=== PATIENT | female | born 1985 | race Caucasian/White ===

== ENCOUNTER 2018-03-06 13:42 | Emergency (ER) | payer SELFPAY ==
[2018-03-06 13:43] VITALS: BP 137/75; PULSE 78; RESP 16; TEMP 36.8; O2SAT 99; BMI 36.0
[2018-03-06] MEDS: Ketorolac 60 MG/2 ML Vial IM (14:15)
[2018-03-06] MEDS: Orphenadrine 60 MG/2 ML Ampul IM (14:15)
[2018-03-06] MEDS: HYDROmorphone 1 MG/ML Syringe IM (14:15)
--- NOTE | 2018-03-06 14:30 | RAD_ITS ---
STUDY: X-RAY - LUMBAR SPINE REASON FOR EXAM: Female, 33 years old. Low back pain following a fall. TECHNIQUE: 3 view(s) of the lumbar spine were obtained. COMPARISON: None FINDINGS: There is straightening of the normal lumbar lordosis. There is no substantial scoliosis. There is a normal alignment of the vertebrae. Normal vertebral bodies and endplates. Normal disc space heights. The soft tissue structures are unremarkable. RAD/Lumbar Spine 2 or 3 Views IMPRESSION: Straightening of the normal lumbar lordosis. Electronically Signed: Brown Gunter MD at 15:02 EST Tel [phone], Service support ,
--- NOTE | 2018-03-06 15:43 | ED.VISSUMM ---
- ER Visit Summary Date of Service: 03/06/18 Chief Complaint: [Back injury] History of Present Illness: The patient is a 33 F [presents to the emergency department complaining of back pain since sustaining an injury this morning. Patient states that she was watering the chicken when she slipped and twisted at which time she felt a pop in her low back. Afterward she had a hard time straightening up and therefore she lowered herself to the ground. Complains of pain and discomfort into both hips and buttocks. She had some mild discomfort down the back of her right leg. She denies any change in bowel or bladder function. She denies weakness in the extremities. She does not have history of back pain. She denies recent illness. She denies urinary symptoms.] Physical Examination: [HEENT-PERRLA, EOMI. Cranial nerves II through XII grossly intact. TMs clear. Mucous membranes moist. No adenopathy. Cardiovascular-regular rate and rhythm without murmur or ectopy Lungs-clear to auscultation, chest wall stable without crepitus or subcu emphysema Abdomen-normoactive bowel sounds, soft, nontender, no rebound or rigidity, no peritoneal signs. Back exam-patient does have some diffuse tenderness over lumbar spine as well as the lumbar paraspinal musculature bilaterally. Patient has positive straight leg raises bilaterally at 45 degrees. Deep tendon reflexes are plus 2 out of 4 bilaterally at the patella and Achilles. Patient has normal L5 extension bilaterally. Patient has normal sensation to light touch. Extremities-intact ?4, normal range of motion, normal pulses, atraumatic] Test Results: [X-rays of lumbar spine obtained showed a ending of the normal lordosis otherwise no fractures.] Emergency Department Course and Treatment: [She was medicated with Dilaudid, Toradol, and Norflex. Patient did have good pain relief with this. Patient was able to stand and ambulate after treatment.] Treatment Plan: [Patient will be given a prescription for Flexeril, Naprosyn, and [place] for severe pain. Patient advised to follow-up with her primary care physician within next 3-5 days. Patient understands if symptoms worsen or she continues 6. Significant pain may need further imaging such as possibly MRI. At this time patient has no signs or symptoms of cauda equina.] Disposition: [Discharged home in stable condition] Impression: [Lumbar strain Lumbar radiculopathy] This note was generated with [employer] dictation software. It may contain incorrect words, spelling, and punctuation that were not noted in review of the chart prior to signing ED Disposition - Plan for ED Patient: Chief Complaint: Back Referrals: Veronica Snow, MANAGER [facility] [Primary Care Provider] -
--- NOTE | 2018-03-06 15:46 | ED.DEP ---
ED Disposition - Plan for ED Patient: Chief Complaint: Back Instructions: ED Sprain Strain Lumbar, ED Sciatica Prescriptions: Hydrocodone Bitart/Apap 5-325 [[place] 5MG-325MG] 1 tab PO Q4H PRN PRN 2 Days #20 tab PRN Reason: Pain Naproxen [Naprosyn] 500 mg PO BID PRN #20 tab Cyclobenzaprine [Flexeril] 10 mg PO TID PRN #20 tab PRN Reason: Muscle Spasm Referrals: Veronica nSow NP-C [Primary Care Provider] - 3-5 Days
[2018-03-06 15:59] VITALS: BP 125/79; PULSE 70; RESP 16; O2SAT 98
--- OUTSIDE RECORDS SUMMARY | 2018-05-02 05:11 | XMS RPT_ITS ---
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 Start End MELOXICAM 15 MG TABLET 30 t* 0 02/27/2018 Route: ORAL Sig: Take 1 tablet by mouth once daily. Take with food. Disposition: Return in about 2 weeks (around 03/13/2018). Follow-up and Disposition History Recorded Encounter Status:Closed by TAMEKA JACOBS CNP on 02/27/18 ED NOTE Observed: 09/10/2017 Status: COMPLETED Source: [place] 2:53 PM [facility] REPOSITORY HNO ID: [id number] Author: Veronica (Rn) VICTORINO Blevins Service: Emergency Medicine Author Type: Registered Nurse Type: ED Notes Filed: 09/11/2017 1:37 PM Note Text: Patient Call Back Information ? How are you doing ? better ? Did we appropriately manage your pain? Yes ? Did you understand your discharge instructions? Yes ? Did you get your prescriptions filled? No ? Were you able to make a follow-up appointment with your physician? Yes ? Were you comfortable during your stay here? Yes ? Did a member of the ER nursing team round on you during your visit? Yes ? You will receive a patient satisfaction survey in the mail in the nest 2 weeks, please take the time to fill out the survey as your input from your ER visit is very important to us. Yes ? Can we do anything else to help you? No ED NOTE Observed: 09/10/2017 Status: COMPLETED Source: [place] 2:43 PM [facility] REPOSITORY HNO ID: [id number] Author: Lynn (Rn) Sammi RN Service: Emergency Medicine Author Type: Registered Nurse Type: ED Notes Filed: 09/10/2017 2:44 PM Note Text: MORPHINE ORDERED FOR SECOND DOSE NOT GIVEN. DOCTOR ERROR. Dr. Denny aware.. CT ABDOMEN AND PELVIS Observed: 09/10/2017 Status: F Source: [facility] W/O CONTRAST 2:09 PM HEALTH SYSTEM REPOSITORY Performed at [facility] APPROVED BY: Kolby Lund MD EXAM TITLE:CT ABDOMEN AND PELVIS W/O CONTRAST DATE:09/10/2017 13:45 COMPARISON: 07/11/2011 CLINICAL INDICATION/HISTORY: Abdominal pain, fever, elevated white blood cell count. TECHNIQUE: CT examination the abdomen and pelvis performed without oral or IV contrast. Sagittal and coronal reconstruction images were generated. CT Radiation dose: Integrated Dose-length product (DLP) for this visit = 1120 mGy*cm. CT Dose Reduction Employed: Automated exposure control (AEC) was used. FINDINGS: ABDOMINAL FINDINGS: The visualized lung parenchyma is clear. Limited evaluation of the unenhanced visceral organs. There is no focal abnormality involving the liver, gallbladder or iliac system. The spleen and pancreas appear normal as do the adrenal glands and kidneys. No urinary tract calculi are present. Normal appendix. No bowel dilatation or wall thickening. No obvious vascular abnormality. There is no lymphadenopathy, free fluid or omental nodule. No acute bony abnormality. PELVIC FINDINGS: The uterus is midline in position. Small ovarian follicles or cysts. No adnexal mass. There is no free fluid or lymphadenopathy. No acute bony abnormality. IMPRESSION: No acute abnormality identified. Follow-up as indicated. ED PROV NOTE Observed: 09/10/2017 Status: COMPLETED Source: [place] 1:51 PM [facility] [place] REPOSITORY HNO ID: [id number] Author: Jazmine Denny MD Service: Emergency Medicine Author Type: Physician Type: ED Provider Notes Filed: 09/10/2017 2:38 PM Note Text: ED Provider Note Patient Name: Sara Gomez SERVICE DATE: 09/10/17 History Patient presents with: Vomiting Diarrhea patient presents with 14 hours of nausea vomiting diarrhea and abdominal pain. She states that her abdominal pain is diffuse but slightly more in bilateral lower quadrants. She states she had a temperature of 100.5. She told me she had some streaks of blood in her vomitus and that she has had 30-40 separate episodes of diarrhea since midnight. She denies any blood in her stool. She states she ate a hot pocket last night and was ill within 2 hours. No one else ate the same food. She has not had rigors PAST MEDICAL HISTORY Diagnosis Date - Migraine PAST SURGICAL HISTORY Procedure Laterality Date - NOSE SURGERY HX No family history on file. Social History Social History Main Topics - Smoking status: Former Smoker - Smokeless tobacco: Never Used - Alcohol use No - Drug use: No - Sexual activity: Yes Partners: Male control/ protection: Implant ALLERGIES No Known Allergies Review of Systems Constitutional: Positive for activity change, appetite change, fatigue and fever. Negative for chills, diaphoresis and unexpected weight change. HENT: Negative. Eyes: Negative. Respiratory: Negative. Cardiovascular: Negative. Gastrointestinal: Positive for abdominal pain, diarrhea and nausea. Negative for abdominal distention, anal bleeding, blood in stool, constipation and rectal pain. Endocrine: Negative. Genitourinary: Negative. Musculoskeletal: Negative. Neurological: Negative. Hematological: Negative. All other systems reviewed and are negative. Physical Exam BP 111/62 Pulse 97 Temp (Src) 98.6 (Temporal Artery) Resp 16 Ht 5' 2 (1.58m) Wt 195 lb (88.5kg) SpO2 100% LMP 09/10/2016 BMI 35.66 kg/(m2). Physical Exam Constitutional: She is oriented to person, place, and time. She appears well-developed and well-nourished. HENT: Head: Normocephalic and atraumatic. Mouth/Throat: Oropharynx is clear and moist. no significant dry mucous membranes were noted. Eyes: Conjunctivae and EOM are normal. Pupils are equal, round, and reactive to light. No scleral icterus. Neck: Normal range of motion. Neck supple. Cardiovascular: Normal rate, regular rhythm and normal heart sounds. Pulmonary/Chest: Effort normal and breath sounds normal. Abdominal: Soft. Bowel sounds are normal. She exhibits no distension and no mass. There is tenderness. There is no rebound and no guarding. No hernia. Musculoskeletal: Normal range of motion. Neurological: She is alert and oriented to person, place, and time. Skin: Skin is warm and dry. Capillary refill takes less than 2 seconds. Psychiatric: She has a normal mood and affect. Nursing note and vitals reviewed. Diagnostic Testing ED Labs Ordered and Reviewed COMPREHENSIVE METABOLIC PANEL (AK,AV,EU,FV,HL,ALEJANDRO,MM,SP) - Abnormal; Notable for the following: Result Value Ref Range Glucose 125 (*) 70 - 99 mg/dL Protein, Total 9.0 (*) 6.4 - 8.2 g/dL All other components within normal limits CBC + AUTO DIFF (AK,AV,EU,FV,HL,ALEJANDRO,MM,SP) - Abnormal; Notable for the following: WBC 13.4 (*) 4.8 - 10.8 thou/cmm Abs. Neut(Anc) 12.46 (*) 3.00 - 5.67 thou/cmm Abs. Lymph 0.54 (*) 1.50 - 3.65 thou/cmm All other components within normal limits URINALYSIS WITH MICROSCOPIC (EU,FV,HL,ALEJANDRO,MM,SP) - Abnormal; Notable for the following: Hemoglobin, Urine 1+ (*) Negative All other components within normal limits HCG QUALITATIVE URINE (AK,AV,EU,FV,HL,ALEJANDRO,MM,SP) LIPASE BLOOD (AK,AV,EU,FV,HL,ALEJANDRO,MM,SP) MDRD GFR CBC + AUTO DIFF (EU,FV,HL,ALEJANDRO,MM,SP) STOOL CULTURE/EIA (AK) Procedures Medical Decision Making MDM patient presented with a chief complaint of concern for food poisoning with nausea and vomitingand diarrhea after eating a hot pocket last evening. Patient was initially treated with IV fluids and Zofran. On reevaluation her pain had localized to the right and left lower quadrant. She has never had any abdominal surgeries. Urine showed that she had a high specific gravity but no urinary tract infection and her test was negative. Mild leukocytosis at 13.4 and electrolytes were unremarkable. With mild leukocytosis and persistent abdominal pain a CT flank was ordered and she was given 4 of morphine IV. Initially I had ordered an nasogastric tube as the patient had told me she had vomited several streaks of blood however the patient then clarified with the nurse that it was the size of a small eraser and she was not sure it was blood in the NG tube order was then discontinued. patient's had a CT scan noncontrast which was negative for any sign of inflammation specifically the appendix was mentioned and is normal. The patient has had no further diarrhea or vomiting since she's been here. She will be discharged with Phenergan bland diet and close follow-up with her primary care. ED Course / Clinical Impression Clinical Impressions as of Sep 11 1431 Nausea vomiting and diarrhea Plan The patient was DISCHARGED: Counseled patient and spouse regarding lab results AND radiology results AND suspected diagnosis AND need for follow-up. Discharged home with verbal and written instructions. They were instructed to return as needed for persistent or worsening symptoms or any new concerns. Condition at time of disposition: stable SIGNATURE: MD Jazmine Cardoza MD 09/10/17 1438 ED NOTE Observed: 09/10/2017 Status: COMPLETED Source: [place] 1:00 PM [facility] REPOSITORY [facility] ID: [id number] Author: Lynn Boyer) VICTORINO Chapa Service: Emergency Medicine Author Type: Registered Nurse Type: ED Notes Filed: 09/10/2017 1:14 PM Note Text: Nasogastric tube placement canceled. Patient clarified and reports she had some specs of blood about the size of an eraser top. was notified and canceled NG tube order ED NOTE Observed: 09/10/2017 Status: COMPLETED Source: [place] 12:28 PM [facility] REPOSITORY HNO ID: [id number] Author: Lynn SosaRn) VICTORINO Chapa Service: Emergency Medicine Author Type: Registered Nurse Type: ED Notes Filed: 09/10/2017 12:28 PM Note Text: Patient resting in bed with spouse at bedside. Patient calm and cooperative. URINALYSIS ROUTINE Collected: 09/10/2017 Status: F Source: [facility] 11:50 AM HEALTH SYSTEM REPOSITORY TYPE CODE TESTS RESULT OUT OF RANGE REFERENCE UNITS LAB LCOLR(LOIN C) Urine Color DARK YELLOW LAB LAPPU(LOIN C) Urine Appearance CLEAR LAB LGLUR(LOIN Negative C) Glucose Urine NEGATIVE LAB LKETO(LOIN Negative C) Ketone Urine NEGATIVE LAB LHGBU(LOIN Negative C) Abnormal Hemoglobin,Urin 1+ e LAB LPRTU(LOIN Negative C) Protein Urine NEGATIVE LAB LNITR(LOIN Negative C) Nitrites Urine NEGATIVE LAB LBILU(LOIN Negative C) Bilirubin Urine NEGATIVE LAB LSPG(LOINC 1.005-1.030 ) Specific 1.025 [place], Ur LAB LPHUR(LOIN 5.0-8.0 C) pH,Urine 6.0 LAB LUROB(LOIN 0.0-1.0 EU/dL C) Urobilinogen,Ur 0.2 LAB LLEUK(LOIN Negative C) Leukocytes NEGATIVE Esterase LAB LWBCU(LOIN 0-5 /hpf C) WBC, Urine NONE LAB LRBCU(LOIN 0-3 /hpf C) RBC,Urine 0-3 LAB LEPIT(LOIN 0-5 /hpf C) Ep Cells Urine 0-2 Performed By: #### LURIN #### [place] [address] URINE HCG, QUAL. Collected: 09/10/2017 Status: F Source: [facility] 11:50 AM [facility] SYSTEM REPOSITORY TYPE CODE TESTS RESULT OUT OF REFERENCE UNITS RANGE LAB LUHCG(LOINC Negative ) HCG, Negative Qual. Urine Performed By: #### LHCG2 #### [place] [address] ED NOTE Observed: 09/10/2017 Status: COMPLETED Source: [place] 11:46 AM [facility] REPOSITORY HNO ID: [id number] Author: Rita (Rn) Rafy RN Service: Emergency Medicine Author Type: Registered Nurse Type: ED Notes Filed: 09/10/2017 11:46 AM Note Text: Labs were drawn and sent. HEMOGRAM/MANUAL DIFF Collected: 09/10/2017 Status: F Source: [place] 11:43 AM [facility] REPOSITORY TYPE CODE TESTS RESULT OUT OF REFERENCE UNITS RANGE LAB LWBC(LOINC 4.8-10.8 thou/cmm ) WBC High 13.4 LAB LRBC(LOINC 4.20-5.40 mil/cmm ) RBC 4.85 LAB LHGB(LOINC 12.0-16.0 g/dL ) Hgb 15.0 LAB LHCT(LOINC 37.0-47.0 % ) Hct 44.0 LAB LMCV(LOINC 81.0-99.0 fl ) MCV 90.7 LAB LMCH(LOINC 27.0-31.0 pg ) MCH 30.9 LAB LMCHC(LOIN 32.0-36.0 % C) MCHC 34.1 LAB LRDW(LOINC 11.5-15.9 % ) RDW 12.3 LAB LPLT(LOINC 150-400 thou/cmm ) Platelet 253 LAB LMPV(LOINC 7.1-10.5 fl ) MPV 10.0 LAB LDTYP(LOIN C) Diff Type Manual Diff LAB LSEGT(LOIN % C) Seg Neutrophil 93.0 LAB LLYMP(LOIN % C) Lymphocyte 4.0 LAB LMNO(LOINC % ) Monocyte 3.0 LAB JUDY(LOINC % ) Eosinophil 0.0 LAB LBASO(LOIN % C) Basophil 0.0 LAB LSEGN(LOIN 3.00-5.67 thou/cmm C) Abs. High Neut (ANC) 12.46 LAB LLYMN(LOIN 1.50-3.65 thou/cmm C) Low Abs. Lymph 0.54 LAB LMONN(LOIN 0.20-1.00 thou/cmm C) Abs. [place] 0.40 LAB LEOSN(LOIN 0.00-0.41 thou/cmm C) Abs. Eosin 0.00 LAB LBASN(LOIN 0.00-0.08 thou/cmm C) Abs. Baso 0.00 LAB LPLES(LOIN C) Platelet Estimate Normal LAB LRBCM(LOIN C) RBC Morphology Normal Performed By: #### LMCBD #### [facility] [address] [place] [address] COMPREHENSIVE PANEL Collected: 09/10/2017 Status: F Source: [facility] 11:43 AM HEALTH SYSTEM REPOSITORY TYPE CODE TESTS RESULT OUT OF REFERENCE UNITS RANGE LAB RATING SPECIALIST(LOINC) 136-145 mEq/L Sodium Blood 136 LAB LK(LOINC) 3.5-5.1 mEq/L Potassium Blood 3.6 LAB LCL(LOINC) 98-107 mEq/L Chloride Blood 101 LAB LCO2(LOINC 21-32 mEq/L ) CO2 Blood 23 LAB LGLU(LOINC 70-99 mg/dL ) Glucose High Blood 125 LAB LBUN(LOINC 7-25 mg/dL ) BUN Blood 13 LAB LCREA(LOIN 0.51-0.95 mg/dL C) Creatinine Blood 0.69 LAB LCA(LOINC) 8.5-10.1 mg/dL Calcium Blood 9.4 LAB LALB(LOINC 3.4-5.0 g/dL ) Albumin Blood 4.6 LAB LTP(LOINC) 6.4-8.2 g/dL Total High Protein 9.0 LAB LAST(LOINC 15-37 U/L ) AST-SGOT Blood 15 LAB LALT(LOINC 14-63 U/L ) ALT-SGPT Blood 29 LAB LALKP(LOIN 46-116 U/L C) Alk Phosphatase 78 LAB LBILT(LOIN 0.2-1.0 mg/dL C) Total Bilirubin 1.0 LAB LANGP(LOIN 8-20 C) Anion Gap 15 LAB LBNCR(LOIN 10-20 C) BUN/Creatinine 19 Ratio Performed By: #### LP14 #### [facility] [address] [place] [address] LIPASE BLOOD Collected: 09/10/2017 Status: F Source: [facility] REPOSITORY TYPE CODE TESTS RESULT OUT OF REFERENCE UNITS RANGE LAB LLIP(LOINC) 73-393 U/L Lipase Blood 89 Performed By: #### LLIP #### [facility] [address] [place] [id number] MDRD EGFR Collected: 09/10/2017 Status: F Source: [facility] 11:43 AM HEALTH SYSTEM REPOSITORY TYPE CODE TESTS RESULT OUT OF RANGE REFERENCE UNITS LAB LGFRF(LOINC >60mL/min/1.73m ) 2 eGFR >60 Result Comment: If the patient is , multiply the result by 1.210. Performed By: #### LGFR #### [facility] [address] [place], [place] [address] ED NOTE Observed: 09/10/2017 Status: COMPLETED Source: [place] 11:39 AM [facility] REPOSIT[facility] HNO ID: [id number] Author: Lynn (Rn) VICTORINO Chapa Service: Emergency Medicine Author Type: Registered Nurse Type: ED Notes Filed: 09/10/2017 11:40 AM Note Text: Patient reports her symptoms started after eating hot pockets. She believes she has food poisoning. Patient alert and oriented x 3 with regular and easy respirations. ALLERGIES ALLERGIES DATE TYPE / CODE NAME / CODE REACTION SEVERITY SOURCE 03/06/2018 Drug No Known Unknown [facility] Allergy/416 Allergies/[id number] [facility] [id number](SNOM 0388(RXNORM) Repository ED CT) Drug NO KNOWN [facility] Class/66671 ALLERGIES [address] [place] 1003(SNOMED Repository CT) ENCOUNTERS ENCOUNTERS ADMIT/DISCHARGE ACCOUNT ADMITTING ENCOUNTER LOCATION SOURCE NUMBER CLASS 03/06/2018/03/06/20 [id number] Emergency [place] [address] ing:ED Repository 03/06/2018/03/08/20 [id number] Ambulatory [address] Repository 02/27/2018/02/28/20 [id number] Ambulatory [address] Repository 02/27/2018/02/29/20 [id number] Ambulatory [address] Repository PAYERS PAYERS ENCOUNTER GUARANTOR PAYER SUBSCRIBER SOURCE 03/06/2018 SARA Link [id number] Primary NOT GIVENUNK [place] [address] Insurance:SELF PAY [facility] [id number]: (419) Number: Effective Repository [phone] () Date:2018-03-06
== END 2018-03-06 16:09 | disposition home or self-care (01) ==
LOC: ED 14:19
PROVIDERS: Emergency Provider Emergency Medicine; Family Provider Nurse Practitioner Family; PCP Nurse Practitioner Family
DX: S39.012A Strain of muscle, fascia and tendon of lower back, initial encounter (principal); W01.0XXA Fall on same level from slipping, tripping and stumbling without subsequent striking against object, initial encounter; Y93.89 Activity, other specified; M54.16 Radiculopathy, lumbar region; Z72.0 Tobacco use
CPT/HCPCS: 72100; 96372; 99283

== ENCOUNTER → 2019-06-03 12:49 | Outpatient (CLI) | payer OTHER, SELFPAY ==
[2019-06-03 12:40] VITALS: BMI 36.0
--- NOTE | 2019-06-03 12:50 | RAD_ITS ---
STUDY: X-RAY - CERVICAL SPINE REASON FOR EXAM: Female, 34 years old. PAIN IN NECK AND RIGHT SHOULDER THAT RADIATES INTO THE FINGERS CAUSING NUMBNESS TECHNIQUE: 5 view(s) of the cervical spine were obtained. COMPARISON: None FINDINGS: Normal anterior atlantoaxial articulation. Normal odontoid process. There is reversal of the normal cervical lordosis. Normal vertebral bodies and endplates. Normal disc space heights. Normal visualized intervertebral neuroforamina. The soft tissue structures are unremarkable. There is no demonstrated fracture of the cervical spine. RAD/Cerv Spine 4 or 5 Views IMPRESSION: Mild reversal physiological cervical lordosis which may be associated with muscular spasm. Otherwise normal x-ray examination of the visualized cervical spine. Electronically Signed: Indu Saab MD at 4:06 EST , Service support ,
--- NOTE | 2019-06-03 12:50 | RAD_ITS ---
STUDY: X-RAY - RIGHT SHOULDER REASON FOR EXAM: Female, 34 years old. RIGHT SHOULDER PAIN NKI TECHNIQUE: 3 view(s) of the shoulder. COMPARISON: None. FINDINGS: Normal glenohumeral articulation. Normal acromioclavicular joint. Normal acromion. Normal humeral head and visualized proximal humerus. The soft tissue structures are unremarkable. There is no demonstrated fracture. Normal visualized pulmonary apex. RAD/Shoulder min 2 Views IMPRESSION: Normal x-ray examination of the shoulder. Electronically Signed: Indu Saab MD at 4:06 EST , Service support ,
== END ==
LOC: HPRAD 12:50
PROVIDERS: PCP Nurse Practitioner Family; Referring Provider Physician Assistant; Visit Provider Physician Assistant
DX: R20.0 Anesthesia of skin (principal); M25.511 Pain in right shoulder
CPT/HCPCS: 72050; 73030

== ENCOUNTER 2024-02-08 15:30 | Emergency (ER) | payer OTHER, SELFPAY ==
[2024-02-08 15:31] VITALS: BP 156/92; PULSE 108; RESP 18; TEMP 36.2; O2SAT 100; BMI 40.0
--- NOTE | 2024-02-08 15:50 | ED.VIS.FEGU ---
HPI HPI - Female History of Present Illness Chief Complaint: Vag Bleeding Informant: patient Pain Pain: Positive for Pelvic Pain Onset: Weeks (9) Context: Gradual Onset Timing: Continuous Quality: Positive for Cramping and Sharp Location: Suprapubic and Back Worsened by: - (Nothing) Relieved by: - (Nothing) Bleeding Issue: Positive for Vaginal bleeding and Passing clots Onset: Weeks (9) Context: Gradual Onset Timing: Continuous Current Severity: Heavy Maximum Severity: Heavy Associated Symptoms Associated Symptoms: Negative for Dysuria or Frequency Narrative Narrative: Patient presents with heavy vaginal bleeding for the past 9 weeks. Patient states that she is going going through 1 pad (which hold approximately half a cup of fluid) every 1-2 hours. Patient states she had to leave work early today because she was having worsening bleeding and it was saturating her clothes as well. Patient states she has been feeling lightheaded. The patient states this is much heavier than her normal menstrual period. Patient admits to some cramping and sharp pain. Patient states it is over the suprapubic area and into her lower back. Patient admits to some subjective fevers and chills. Patient admits to some lightheadedness and dizziness. Patient states she has been feeling fatigued. [facility] Medical History (Updated 02/08/24 @ 19:[address] Rigo Ramirez DO) Chiari malformation Home Medications ?Medication ?Instructions ?Recorded ?Last Taken ?Type norethindrone acetate 5 mg tablet 5 mg PO DAILY #30 tabs 02/08/24 Unknown Rx Allergy/AdvReac Type Severity Reaction Status Date / Time No Known Allergies Allergy Verified 02/08/24 15:31 Surgical History (Updated 02/08/24 @ 16:[address] Rigo Ramirez DO) Hx of rhinoplasty Social History Smoking Status: Current every day smoker tobacco type: cigarettes ROS ROS ED Constitutional Constitutional ED: Reports chills, fever(s) and subjective Eyes Eyes: Denies blurry vision or change in vision ENT ENT ED: Denies rhinorrhea or sore throat Cardiovascular Cardiovascular: Denies chest pain or palpitations Respiratory/Chest Respiratory/Chest: Reports dyspnea; Denies cough Gastrointestinal Gastrointestinal: Reports abdominal pain and nausea; Denies vomiting Genitourinary Genitourinary ED: Denies dysuria or hematuria Musculoskeletal Musculoskeletal: Reports back pain; Denies neck pain Integumentary Denies abscess or rash Neurologic Neurologic: Reports headache(s); Denies weakness Allergic/Immunologic Allergic/Immunologic ED: Denies mouth swelling or urticaria EXAM Physical Exam Const Vital Signs: 02/08/24 15:31 02/08/24 16:37 02/08/24 17:00 Temperature 97.1 F L Temperature Source Temporal Pulse Rate 108 H 88 Pulse Rate [Lying] 88 Pulse Rate [Sitting (for 1 minute prior to obtaining)] 76 Pulse Rate [Standing (for 1 minute prior to obtaining)] 84 Respiratory Rate 18 14 Blood Pressure 156/92 H 137/78 H Blood Pressure [Lying] 148/95 H Blood Pressure [Sitting (for 1 minute prior to obtaining)] 126/86 H Blood Pressure [Standing (for 1 minute prior to obtaining)] 137/80 H Blood Pressure Mean 113 97 Blood Pressure Mean [Lying] 112 Blood Pressure Mean [Sitting (for 1 minute prior to obtaining)] 99 Blood Pressure Mean [Standing (for 1 minute prior to obtaining)] 99 Pulse Ox 100 98 Oxygen Delivery Method Room Air Room Air 02/08/24 18:00 02/08/24 19:00 02/08/24 19:25 Temperature 98.9 F 97.8 F Temperature Source Temporal Pulse Rate 64 93 93 Pulse Rate [Lying] Pulse Rate [Sitting (for 1 minute prior to obtaining)] Pulse Rate [Standing (for 1 minute prior to obtaining)] Respiratory Rate 14 16 16 Blood Pressure 131/86 H 126/99 H 125/99 H Blood Pressure [Lying] Blood Pressure [Sitting (for 1 minute prior to obtaining)] Blood Pressure [Standing (for 1 minute prior to obtaining)] Blood Pressure Mean 101 108 107 Blood Pressure Mean [Lying] Blood Pressure Mean [Sitting (for 1 minute prior to obtaining)] Blood Pressure Mean [Standing (for 1 minute prior to obtaining)] Pulse Ox 98 98 99 Oxygen Delivery Method Room Air Room Air Positive well nourished and well developed General Appearance ED: well developed and NAD HEENT Reports moist mucous membranes Neck supple and no JVD Resp normal respiratory effort and clear to auscultation bilaterally GI soft to palpation and non-distended Palpation: tender suprapubic (Mild) Neuro oriented x3, CN's II-XII intact bilaterally and no sensory deficits noted Sensorium / Orientation: alert Motor Exam: strength 5/5 throughout Psych mental status grossly normal MDM MDM MDM Narrative Medical decision making narrative: Differential diagnosis includes anemia, menorrhagia, endometrial mass, fibroid, coagulopathy, and dysfunctional uterine bleeding. CBC will be obtained to assess for leukocytosis and anemia. Basic metabolic profile will be obtained to assess for electrolyte abnormality and renal function. Serum hCG will be obtained to assess for . PT with INR and PTT will be obtained to assess for coagulopathy. CT scan of the abdomen and pelvis will be obtained to assess for uterine mass and fibroid. Lab Data Attestation: I reviewed the patient's lab results. Lab results narrative: CBC was reviewed. Hemoglobin was 10.4 and hematocrit was 31.8. Platelets were within normal limits. PT with INR and PTT were reviewed and were within normal limits. Basic metabolic profile was reviewed and was within normal limits. Serum hCG was reviewed and was negative. Urinalysis was reviewed. Occult blood was 150. Leukocyte Estrace was negative. There were greater than 100 red blood cells and greater than 100 white blood cells. There is 1+ bacteria. Nitrates were negative. Labs: Laboratory Results - last 24 hr 02/08/24 02/08/24 16:45 16:50 WBC 11.0 RBC 3.43 L Hgb 10.4 L Hct 31.8 L MCV 92.7 MCH 30.3 MCHC 32.7 RDW Std Deviation 43.8 RDW Coeff of Hilario 13.1 Plt Count 321 MPV 9.6 Immature Gran % (Auto) 0.500 Neut % (Auto) 71.9 H Lymph % (Auto) 21.9 Love % (Auto) 4.3 Eos % (Auto) 0.9 Baso % (Auto) 0.5 Absolute Neuts (auto) 7.9 H Absolute Lymphs (auto) 2.40 Nucleated RBC % 0 PT 13.8 INR 1.1 APTT 25.1 Sodium 138 Potassium 3.6 Chloride 109 H Carbon Dioxide 25.0 Anion Gap 4 L BUN 14 Creatinine 0.78 Estim Creat Clear Calc 108.81 Est GFR (MDRD) Af Amer 106 Est GFR (MDRD) Non-Af 88 BUN/Creatinine Ratio 17.8 Glucose 95 Calcium 9.0 Serum , Qual NEGATIVE Urine Color Red Urine Clarity Turbid Urine pH 7.0 Ur Specific Hinckley 1.010 Urine Protein 500 H Urine Glucose (UA) Normal Urine Ketones Negative Urine Occult Blood 150 H Urine Nitrite Negative Urine Bilirubin Negative Urine Urobilinogen Normal Ur Leukocyte Esterase Negative Urine RBC > 100 SEEN Urine WBC >100 SEEN Ur Squamous Epith Cells 0-5 SEEN Urine Bacteria 1+ Urine Mucus 0 SEEN Radiography Diagnostic Testing: Clinical Impression(s) from Imaging Studies Abdomen/Pelvis CT 02/08/24 16:30 IMPRESSION: No acute findings in the abdomen or pelvis. 2.7 cm left ovarian cyst. Electronically Signed: Cruz Esteves MD at 18:10 EDT , Transvaginal US 02/08/24 19:07 IMPRESSION: Small intrauterine fibroid measuring 1.5 x 1.1 x 1.2 cm Small left ovarian cyst Suspicious for endometrial vascular lesion although of uncertain etiology. Clinical correlation recommended. Electronically Signed: José Miguel Osborn MD at 20:09 EDT , CT scan of the abdomen and pelvis was obtained. There is no acute abnormality noted. There is no uterine mass. There is a 2.7 cm left ovarian cyst. This was interpreted by the radiologist and was also independently reviewed by myself. Pelvic ultrasound was obtained. There is a small intrauterine fibroid measuring 1.5 x 1.1 x 1.2 cm. There is suspicion for an endometrial vascular lesion of uncertain etiology. This was interpreted by the radiologist was also independently reviewed by myself. Treatment and Re-Evaluation Narrative: Urine culture was ordered. Patient was advised of her findings. Case was discussed with Dr. Herr from [facility]. She recommended obtaining a pelvic ultrasound either in the emergency department or as an outpatient. Patient preferred to have it done while here in the emergency department. She also recommended starting the patient on Aygestin twice daily for 3 days and then once daily. She will follow-up with the patient in her office in the next 1 to 2 weeks. Patient understands and is agreeable with the plan. All questions were answered. Discharge Plan Triage Chief Complaint: Vag Bleeding ED Provider: Rigo Ramirez Dx/Rx/DC Orders Clinical Impression: Dysfunctional uterine bleeding, Pelvic pain Instructions: ED Dysfunctional Uterine Bleeding Prescriptions: New norethindrone acetate 5 mg tablet 5 mg PO DAILY Qty: 30 0RF Rx Instructions: Take 1 tablet twice daily for 3 days then 1 tablet daily Primary Care Provider: Veronica Snow NP Referrals: Chio Herr MD [Med Staff - Active Staff] - 1-2 Weeks Veronica Snow NP, CONFERENCE DIRECTOR-C [Primary Care Provider] - Print Language: Arabic Disposition Disposition: Home, Self Care Discharge Date/Time: 02/08/24 19:56
--- NOTE | 2024-02-08 16:30 | CT_ITS ---
INDICATION: Abdominal pain EXAMINATION: CT ABDOMEN AND PELVIS WITH CONTRAST - CT Abdomen And Pelvis W/ Contrast Injection TECHNIQUE: Helically acquired images were obtained of the abdomen and pelvis following IV contrast. A radiation dose optimization technique was used for this scan. IV Contrast dosage and agent: 100 cc [id number]-370 Oral contrast: None. COMPARISON: None. FINDINGS: LOWER CHEST: Lung bases are clear. No cardiomegaly or pericardial effusion. LIVER: Homogeneous. No focal mass. GALLBLADDER AND BILIARY TREE: No calcified gallstones. No gallbladder distension or wall edema. No intra- or extrahepatic biliary ductal dilation. PANCREAS: No focal cystic or solid mass. SPLEEN: Normal size without focal cystic or solid mass. ADRENAL GLANDS: No nodules. KIDNEYS AND URETERS: Uniform enhancement. No hydronephrosis. PERITONEUM: No ascites or free air. BOWEL: Normal appendix. No stomach or bowel distension. No focal inflammatory change. LYMPH NODES: No enlarged mesenteric or retroperitoneal lymph nodes. VESSELS: Aorta is non-dilated. URINARY BLADDER: Unremarkable. REPRODUCTIVE ORGANS: No pelvic masses. 2.7 cm left ovarian cyst. ABDOMINAL WALL: Small fat-containing umbilical hernia. BONES: Unremarkable. CT/Abdomen/Pelvis W IV Cont ONLY IMPRESSION: No acute findings in the abdomen or pelvis. 2.7 cm left ovarian cyst. Electronically Signed: Cruz Esteves MD at 18:10 EDT ,
[2024-02-08 16:37] VITALS: BP 126/86; BP 137/80; BP 148/95; PULSE 76; PULSE 84; PULSE 88
[2024-02-08 16:50] LABS: Mucous, Urine 0 SEEN /hpf (<or=2+)
[2024-02-08 17:00] VITALS: BP 137/78; PULSE 88; RESP 14; O2SAT 98
[2024-02-08 17:00] LABS: Absolute Neutrophil Count 7.9 X10^3/uL (2.0-7.7); Basophil# 0.05 X10^3/uL; Basophil% 0.5 % (0-1); Eosinophils% 0.9 % (0-5); Hematocrit 31.8 % (37-47); Hemoglobin 10.4 g/dL (12.0-15.0); Lymphocyte % 21.9 % (19-41); Mean Corp Hgb Conc 32.7 g/dL (32-36); Mean Corpuscular Hgb 30.3 pg (27.0-32.0); Mean Corpuscular Volume 92.7 fL (81-99); Mean Platelet Vol. 9.6 fl (6.2-12.0); Monocyte# 0.47 X10^3/uL; Monocyte% 4.3 % (0-10); NRBC Flagged by Analyzer 0 % (0-5); Neutrophil % 71.9 % (47-70); Platelet Count 321 K/mm3 (150-450); RBC Distribution Width CV 13.1 % (11.6-14.6); RBC Distribution Width SD 43.8 fl (35.1-43.9); Red Blood Count 3.43 M/mm3 (4.2-5.4)
[2024-02-08 17:04] LABS: Color, Urine Red (Yellow); Glucose, Dipstick Normal (Normal); Ketone-Dipstick Negative (Negative); Leukocyte Esterase-Dipstick Negative /ul (Negative); Nitrite-Dipstick Negative (Negative); Occult Blood-Urine 150 /ul (Negative); Protein-Dipstick 500 mg/dl (Negative); Urine Bilirubin Dipstick Negative (Negative); Urine Clarity Turbid (Clear); Urine Urobilinogen Normal (Normal)
[2024-02-08 17:06] LABS: International Normalized Ratio 1.1; Prothrombin Time (Protime)PT. 13.8 SECONDS (11.7-14.9)
[2024-02-08 17:08] LABS: Partial Thromboplast Time 25.1 Seconds (24.1-36.2)
[2024-02-08 17:11] LABS: Anion Gap 4 (5-15); BUN 14 mg/dL (7-18); BUN/Creat Ratio 17.8 RATIO (10-20); Chloride 109 mmol/L (98-107); Creatinine, Serum 0.78 mg/dL (0.55-1.02); EST Glomerular Filtration Rate 88 mL/min (>60); Est Glom Filt Rate - Afr Amer 106 mL/min (>60); Estimated Creatinine Clearance 108.81 ml/min; Glucose 95 mg/dL (74-106); Potassium 3.6 mmol/L (3.5-5.1); Sodium Level 138 mmol/L (136-145)
[2024-02-08 17:13] LABS: Bacteria 1+ /hpf (None Seen); Red Blood Cells-Urine > 100 SEEN /hpf (0-5); Squamous Epithelial Cells - UA 0-5 SEEN /hpf (5-10); White Blood Cells >100 SEEN /hpf (0-5)
[2024-02-08 17:14] LABS: Internal QC Validated? YES +Cl - CLEAR BKGD; Pregnancy, Serum, hCG Quali. NEGATIVE Negative
[2024-02-08 18:00] VITALS: BP 131/86; PULSE 64; RESP 14; TEMP 37.2; O2SAT 98
[2024-02-08 19:00] VITALS: BP 126/99; PULSE 93; RESP 16; O2SAT 98
--- NOTE | 2024-02-08 19:07 | US_ITS ---
STUDY: ULTRASOUND TRANSVAGINAL CLINICAL: Female, 39 years old. Vaginal bleeding x 9 weeks TECHNIQUE: Transvaginal COMPARISON: None. FINDINGS: Normal uterine size measuring 8.2 x 4.6 x 2.7 cm in maximal craniocaudal dimension. There is a small fibroid measuring 1.5 x 1.2 x 1.2 cm Normal endometrial thickness measuring 19 mm and heterogeneous. There is a questionable complex vascular mass endometrial canal measuring 1.3 x 1.2 cm possibly representing polyp, submucosal fibroid or retained products of conception if the patient has been recently . Normal uterine cervix. Normal right ovary, measuring 2.9 x 1.3 x 1.8 cm. There are multiple follicles without a dominant cyst. Normal left ovary, measuring 3.4 x 2.4 x 2.5 cm. There is a cyst measuring 2.6 x 1.9 cm There is no free fluid in the pelvis. US/Transvaginal Non- IMPRESSION: Small intrauterine fibroid measuring 1.5 x 1.1 x 1.2 cm Small left ovarian cyst Suspicious for endometrial vascular lesion although of uncertain etiology. Clinical correlation recommended. Electronically Signed: José Miguel Osborn MD at 20:09 EDT ,
[2024-02-08 19:25] VITALS: BP 125/99; PULSE 93; RESP 16; TEMP 36.6; O2SAT 99
== END 2024-02-08 19:56 | disposition home or self-care (01) ==
PROVIDERS: Emergency Provider Emergency Medicine; PCP Nurse Practitioner Family; Visit Provider Emergency Medicine
DX: N93.8 Other specified abnormal uterine and vaginal bleeding (principal); R10.2 Pelvic and perineal pain; F17.210 Nicotine dependence, cigarettes, uncomplicated
CPT/HCPCS: 74177; 76830; 80048; 81001; 84703; 85025; 85610; 85730; 87086; 87088; 99284; Q9967; A4216

== ENCOUNTER 2024-02-27 11:46 | Day surgery (SDC) | payer OTHER, SELFPAY ==
[2024-02-27] VITALS (10 sets, daily range): BP systolic 121–135; BP diastolic 64–80; PULSE 61–90; RESP 16–18; TEMP 36.2–36.4; O2SAT 96–100; BMI 39.5
--- NOTE | 2024-02-27 12:04 | HP.PCM_ITS ---
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 Is patient in pain?: Yes (pelvic, lower back, and hip pain) Pain scale (1-10): 6 Allergies naproxen Allergy (Severe, Verified 02/09/24 11:27) Hives Medications ?Medication ?Instructions ?Recorded ?Confirmed ?Type [id number] 250 1 tab PO Q4-6H PRN 02/09/24 02/09/24 History mg-250 mg-65 mg tablet (Excedrin Migraine) etonogestrel 68 mg subdermal 1 implant subdermal ONCE 02/09/24 02/09/24 History implant (Nexplanon) megestrol 40 mg tablet 40 mg PO BID #60 tabs 02/09/24 02/09/24 Rx Is last menstrual period known: No Post menopausal: No Patient : No : No Control Method: nexplanon [facility] Medical History (Updated 02/10/24 @ 17:[address] Chio Herr MD) Chiari malformation Surgical History (Updated 02/08/24 @ 16:[address] Rigo Ramirez, DO) Hx of rhinoplasty Family History (Updated 02/09/24 @ 11:34 by Rohini Sifuentes) Aunt Cancer skin Thyroid disorderGrandfather Cancer prostateMother CVA (cerebral vascular accident) Hypertension Myocardial infarction Thyroid disorder Alcoholism DepressionGrandmother CVA (cerebral vascular accident) Diabetes Hypertension Myocardial infarction Thyroid disorder DepressionFather Hypertension Myocardial infarctionOther Endometriosis Heart disease Social History (Updated 02/09/24 @ 11:37 by Rohini Sifuentes) household members: family housing: house current occupational status: employed current occupation: [employer] sexually active: Yes Smoking Status: Current some day smoker alcohol intake: current alcohol intake frequency: holidays/special occasions only substance use type: does not use seatbelt use: always do you feel safe at home: Yes additional social history: [place] - long-term boyfriend HPI abnormal bleeding, ER follow up per Details: VASILE BACRLAY is a 39 year old who presents for persistent AUB. she has been on nexplanon for a year, she was one before. she has a terminal operator boyfriend for 7 years and they have decided for a long time they do not want kids. she has had intermittent bleeding over the last 9 weeks and has felt tired and weak from this. She presented to the ER yesterday because the bleeding had increased and she was unable to get into any gynecology office to be evaluated and she could not wait any longer. Upon evaluation pelvic ultrasound showed endometrial lesion and anemia. Female Reproductive History Menopausal Symptoms: No night sweats History 1 Elective abortions 1 Hx Para 0 Spontaneous abortions Hx # Term Pregnancies Ectopic pregnancies Hx # Pregnancies Multiple births # of living children ROS Const Constitutional: Reports fatigue; Denies night sweats, weight gain or weight loss ENT ENT: Reports system reviewed and no additional complaints, except as documented Cardio Card: Denies chest pain Resp Resp: Denies cough or dyspnea GI GI: Reports as per HPI, abdominal pain and nausea; Denies constipation or vomiting : Denies nipple discharge, urinary frequency, urinary incontinence, urinary hesitancy, urinary urgency, vaginal discharge, vaginal dryness, vaginal odor or vaginal pruritus Musc Musc: Reports back pain; Denies arthralgias or muscle weakness Skin Skin/Breast: Denies alopecia, change in hair, dry skin, breast mass, breast pain , breast skin changes or nipple discharge Neuro Neuro: Reports system reviewed and no additional complaints, except as documented Psych Psych: Reports system reviewed and no additional complaints, except as documented Endo Endo: Denies cold intolerance, excessive sweating, heat intolerance or polydipsia Vivek/Lymph Hematologic/Lymphatic: Denies easy bleeding, Denies easy bruising and Denies lymphadenopathy Exam Const General: cooperative, healthy appearing, comfortable and no acute distress Orientation: alert HENNV Head: normal to inspection and normocephalic Ears: hearing grossly normal bilaterally and external ears normal Nose: external nose normal and nares normal Face and sinus: normal facial exam Neck Neck: normal visual inspection and no lymphadenopathy Thyroid: thyroid normal Chest Chest palpation & inspection: normal inspection of the chest Resp Effort & Inspection: normal respiratory effort Auscultation: clear to auscultation bilaterally Cardio Rate: regular rate Rhythm: regular rhythm Heart Sounds: S1 normal and S2 normal GI Inspection: normal to inspection and non-distended Palpation: soft and no hepatosplenomegaly Musc Other: gross motor intact no deficits, full bilateral strength Skin General: no rashes or lesions noted Neuro General: patient alert, patient awake, moves all extremities and no focal motor deficits Motor: muscle tone normal throughout Extrem General: normal to inspection and no pedal edema Psych Appearance: grossly normal Mental Status: mental status grossly normal Affect: normal affect Speech and Movement: speech and movement normal Coding Level of Care Code Off vis,new,level 4 Diagnoses Dysfunctional uterine bleeding N93.8 Pelvic pain R10.2 Sterilization Z30.2 Assessment and Plan Assessment and Plan (1) Dysfunctional uterine bleeding: Status: Acute Comment: Plan D&C hysteroscopy polypectomy (2) Pelvic pain: Status: Acute (3) Sterilization: Status: Acute Comment: Plan laparoscopic bilateral salpingectomy Medications: New megestrol 40 mg PO BID 60 tabs 2RF Discontinued norethindrone acetate Take 1 tablet twice daily for 3 days then 1 tablet daily Discontinued Reason: Order Completed 5 mg PO DAILY 30 tabs 0RF Plan Reviewed options and will give Megace now for stabilization and then plan D&C hysteroscopy polypectomy possible symphion and laparoscopic bilateral salpingectomy. Will leave nexplanon in for the time being. Patient counseled regarding the risk of regret and wants to proceed with sterilization, had already planned on having htis done in the spring. After discussing the patient's diagnosis and treatment plan options, patient wishes to proceed with surgical management. I have discussed with the patient the risks, benefits, and alternatives of the procedure which include but are not limited to risks of anesthesia, bleeding, infection, possible damage to bowel, bladder, or surrounding vasculature which could lead to additional surgery to evaluate any complications. Patient agrees to procedure and wishes to proceed. ACOG/uptodate references given for additional information regarding procedure. UPDATE- I have seen the patient and performed any clinically relevant updates to the history and physical exam. Chio Herr MD
[2024-02-27 12:11] LABS: Internal QC Validated? YES +Cl - CLEAR BKGD; Pregnancy, Urine Negative Negative
[2024-02-27] MEDS: Lactated Ringers 1,000 ML 15 ML IV (12:14)
[2024-02-27 12:22] LABS: Hematocrit 36.6 % (37-47); Hemoglobin 12.3 g/dL (12.0-15.0); Mean Corp Hgb Conc 33.6 g/dL (32-36); Mean Corpuscular Hgb 30.1 pg (27.0-32.0); Mean Corpuscular Volume 89.5 fL (81-99); Platelet Count 296 K/mm3 (150-450); RBC Distribution Width CV 12.5 % (11.6-14.6); Red Blood Count 4.09 M/mm3 (4.2-5.4); White Blood Count 8.3 K/mm3 (4.4-11.0)
--- NOTE | 2024-02-27 12:43 | PCM.PRE.AN2 ---
ASA Classification* ASA Classification ASA Classification: 2 Assessment & Plan Anesthesia* Anesthesia Assessment Anesthesia Assessment: Discussed sedation and/or anesthesia options, risks, benefits, and alternatives with patient/parents/legal guardian/POA. Questions invited. The patient/parents/legal guardian/POA seems to understand and agrees to proceed with anesthesia plan. Reviewed the physical assessment, medical history, allergy history and patient home medications list prior to surgery/procedure/anesthetic and documented any changes. Performed airway and anesthesia risk assessments. Anesthesia Type Anesthesia Type: General History Source History Obtained from:: Patient and Chart Anesthesia Focused Assessment* Temperature: 97.6 F Pulse Rate: 90 Blood Pressure: 133/75 Respiratory Rate: 16 Pulse Ox: 98 Oxygen Delivery Method: Room Air Airway Assessment Mouth opens: >3 cm Mallampati Score: III Teeth Condition: Caps/Crowns (Patient has a right lower molar [place]. It is tight) Neck Range of motion (ROM): Full ROM Focused Labs Anesthesia Preop lab: CBC WBC 8.3 K/mm3 (4.4-11.0) 02/27/24 12:00 RBC 4.09 M/mm3 (4.2-5.4) L 02/27/24 12:00 Hgb 12.3 g/dL (12.0-15.0) 02/27/24 12:00 Hct 36.6 % (37-47) L 02/27/24 12:00 Plt Count 296 K/mm3 (150-450) 02/27/24 12:00 CHEMISTRY Potassium 3.6 mmol/L (3.5-5.1) 02/08/24 16:50 Sodium 138 mmol/L (136-145) 02/08/24 16:50 BUN 14 mg/dL (7-18) 02/08/24 16:50 Creatinine 0.78 mg/dL (0.55-1.02) 02/08/24 16:50 Glucose 95 mg/dL (74-106) 02/08/24 16:50 COAG PT 13.8 SECONDS (11.7-14.9) 02/08/24 16:50 Urine Test Negative Negative 02/27/24 11:55 Pre-Assessment Diagnosis/Proposed Procedure Planned Operative Procedure(s): Hysteroscopy,D&C, Polypectomy, Possible Symphion, Laproscopic Bilateral Salpingectomy (B) Laparoscopic, Salpingectomy Anesthesia History Anesthesia History - data entry operator: Anesthesia History - data entry operator Hx Hospitalization No 02/20/24 14:06 Any Problems With Anesthesia No 02/20/24 14:06 Cholinesterase deficiency No 02/20/24 14:06 You/Your Family Experience No 02/20/24 14:06 fever (hyperthermia) with Relationship Recent Exposure to Contagious No 02/27/24 12:11 Disease Does patient have nerve No 02/20/24 14:06 stimulator Patient instructed to have device shut off --Does patient have Pacemaker No 02/27/24 12:11 or ICD? When Was Last Pacemaker Check QUESTION #4 FULL TEXT: You/Your Family Experience fever (hyperthermia) with Anesthesia Last Oral Intake Last Oral intake: Last Oral Intake NPO since 22:00 02/27/24 12:11 Meds taken in AM with sips of No 02/27/24 12:11 water? Meds patient instructed to take am of surgery PONV PONV - data entry operator: PONV - data entry operator Female Yes 02/20/24 14:06 HX of Motion Sickness Yes 02/20/24 14:06 HX of N/V After Surgery No 02/20/24 14:06 Non-Smoker No 02/20/24 14:06 Duration of Surgery greater No 02/20/24 14:06 than 60 minutes Number of Risk Factors 2 02/20/24 14:06 PONV Score Moderate Risk 02/20/24 14:06 Height & Weight Height & Weight: Anesthesia: Height & Weight Height 5 ft 2 in 02/27/24 12:11 Weight: 98 kg 02/27/24 12:11 Body Mass Index (BMI) 39.5 02/27/24 12:11 Respiratory Assessment Respiratory Assessment - data entry operator: Respiratory Tract Infection Hx - data entry operator Hx Respiratory Tract Infection No 02/20/24 14:06 STOP Sleep Apnea STOP Sleep Apnea - data entry operator: STOP Sleep Apnea - data entry operator Hx Hypertension No 02/20/24 14:06 Hx Sleep Apnea No 02/20/24 14:06 CPAP BIPAP Do you snore loudly (louder No 02/20/24 14:06 than talking or can be heard Do you often feel tired/ No 02/20/24 14:06 fatigued/ sleepy during daytime? Has anyone observed you stop No 02/20/24 14:06 breathing during sleep? STOP Results Negative 02/20/24 14:06 QUESTION #5 FULL TEXT : Do you snore loudly (louder than talking or can be heard through closed doors)? 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 Specify any problems Hx of Preganancy in last 3 No 02/20/24 14:06 Months Nurse Filling Out Transfusion VCHRISTIN 02/20/24 14:06 & Questions: Date: 02/20/24 02/20/24 14:06 Time: 14:07 02/20/24 14:06 Patient unable to answer at this time (ie. confused, unrespo /Reproduction History /Reproductive History - data entry operator: /Reproductive Hx- data entry operator Hx Now No 02/20/24 14:06 Gestational Age (in weeks): EDC: Hx Hx Para Hx Section SAB No 02/20/24 14:06 Active Medications Active Medications: Current Medications Generic Name Dose Route Start Last Admin Trade Name Freq PRN Reason Stop Dose Admin Lactated Ringer's 1,000 mls @ 15 mls/hr 02/27/24 12:00 02/27/24 12:14 IV 03/04/24 01:19 15 mls/hr .Q48H ALLAN Administration Protocol [facility] Medical History Wears contact lenses Wears glasses History of steroid therapy Anemia Migraine headache Smoker Chiari malformation Home Medications ?Medication ?Instructions ?Recorded ?Last Taken ?Type johpbjz-ubpzwidmzalyx-tmrxpqgx 250 1 tab PO Q4-6H PRN pain 02/09/24 Unknown History mg-250 mg-65 mg tablet (Excedrin Migraine) etonogestrel 68 mg subdermal 1 implant subdermal ONCE 02/09/24 Unknown History implant (Nexplanon) megestrol 40 mg tablet 40 mg PO BID #60 tabs 02/09/24 02/26/24 Rx Allergy/AdvReac Type Severity Reaction Status Date / Time naproxen Allergy Severe Hives Verified 02/20/24 14:00 Family History Aunt Cancer skin Thyroid disorder Grandfather Cancer prostate Mother CVA (cerebral vascular accident) Hypertension Myocardial infarction Thyroid disorder Alcoholism Depression Grandmother CVA (cerebral vascular accident) Diabetes Hypertension Myocardial infarction Thyroid disorder Depression Father Hypertension Myocardial infarction Other Endometriosis Heart disease Surgical History Hx of rhinoplasty Social History household members: family housing: house current occupational status: employed current occupation: [employer] sexually active: Yes Smoking Status: Light Smoker (<10/day) alcohol intake: current alcohol intake frequency: holidays/special occasions only substance use type: does not use seatbelt use: always do you feel safe at home: Yes additional social history: [place] - long-term boyfriend Review of Systems (Anesthesia) ROS Narrative System reviewed and no additional complaints, except as documented.
[2024-02-27] MEDS: Lidocaine 1% (20 ml mdv) 20 ML Vial (14:07)
[2024-02-27] MEDS: Bupivacaine 0.25% 30 ML Vial (14:43)
--- NOTE | 2024-02-27 14:45 | EMB_PTH ---
PATIENT: VASILE BARCLAY LOC: [facility] [place] U#:[id number] AGE/SX: 39/F ROOM: RE02/27/[address]: Dr. Chio Herr MD : 1985 BED: DIS: 02/27/2024 SPEC #: [id number] RECD: 02/27/24 17:33 STATUS: SUMMER REPhilippe #: [id number] WALTER: 02/27/24 14:[address]: Chio Herr DEPT: SURGICAL PATHOLOGY RECD BY: Deena Leiva ENTERED: 02/28/24 09:25 SP TYPE: ENDOM BX/C OTHR DR: Veronica Snow NP-C Tissues: A - Endometrium, NOS B - Fallopian tube Procedures: Surgery Specimen Level II Surgery Specimen Level IV Comments: @ Specimen number changed from [id number] to [id number] @ on 02/28/24 at 1011 by KLAUDIA. HEADER OPERATION: Hysterectomy, D&C, polypectomy PRE-OP DIAGNOSIS: Dysfunctional uterine bleeding, pelvic pain, sterilization TISSUE SUBMITTED: A- Endometrial curetting and polyp, B- Bilateral fallopian tubes MICROSCOPIC DIAGNOSIS A. Endometrial curettings and polyp: High grade endometrial adenocarcinoma. See comment. B. Right and left fallopian tubes, bilateral salpingectomies:. Complete cross-sections of fallopian tubes with mild chronic inflammation. No evidence of malignancy. AM. 03/13/2024 COMMENT A. This case was seen in consultation with Dr. Jill Garner of [facility]. Sections show well differentiated endometrial adenocarcinoma with mucinous differentiation admixed with less differentiated solid component. Immunohistochemistry from [facility] supports the above diagnosis. Clinical correlation is necessary. Case has been reviewed in consultation with Dr. oLrenzo who concurs with the above diagnosis. IDC:SJ MICROSCOPIC DESCRIPTION Slides are reviewed. GROSS DESCRIPTION A. Received in fixative is one container labeled with the patient's name and designated Endometrial curettings and polyp. The specimen consists of multiple grayish-hercules soft tissue mixed with blood clot measuring in aggregate 3.0 x 2.0 x 0.5cm. The entire specimen is submitted in three cassettes. B. Received in fixative is one container labeled with the patient's name and designated bilateral fallopian tubes. The specimen consists of two undesignated fallopian tubes. One fallopian tube measures 4.0cm in length and 0.5cm in diameter. Second fallopian tube measures 6.2cm in length and 0.7cm in diameter. Serial sectioning of both fallopian tubes reveal unremarkable cut surfaces. Napkin Machine Operator sections are submitted in two cassettes: 1- one fallopian tube, 2- second fallopian tube. FA. 02/28/2024 TC:0 CPT:74232,25533
[2024-02-27] MEDS: TRANEXAMIC ACID 1,000 MG in 0.9% Normal Saline (100mL Bag) 100 ML 440 MG IV (14:49)
--- NOTE | 2024-02-27 15:16 | PCM.POST.ANE ---
Anesthesia: Postop Eval I Current Vital Signs Temperature: 97.2 F Pulse Rate: 88 Blood Pressure: 135/75 Respiratory Rate: 18 Pulse Ox: 98 Assessment Airway patent: Yes Spontaneous unlabored respirations: Yes nausea: No Vomiting: No Anesthesia Complication: No Fluid Hydration Crystalloid volume administer (ml): 500 Total IV fluid infused: 500 Progress Note Anesthesia document: Postop Eval 1 completed: Yes
--- NOTE | 2024-02-27 15:39 | DCINST_ITS ---
Discharge Instructions Diet Discharge Diet: No restrictions Activity Discharge Activity: Return to Normal Activity, May Not Drive ( while taking narcotic pain meds, when pain free), May Shower and May Take a Tub Bath (in 7 days) May resume sexual activity in: 1 week Weight Bearing Status: Full weight bearing Dressing / Incision Call your doctor if your incision/area has: Continuous Slow Oozing, Sudden Increased Bleeding, Increased Pain/ Swelling, Increased Redness and Foul Smelling Discharge Call your doctor if you observe: Fever of 101 or Higher, Using more than 1 pad per hour, Shortness of breath, Chest pain and Uncontrolled pain Suture Line Care: Avoid Pulling/Pushing and Avoid Pinching/Bending Remove Dressing in: 1 week (if present) Cleanse incision/area with: Soap & Water and Keep Dressing Clean & Dry Follow Up Care When: Call to make an appointment with your doctor for a fu/incision check in 1- 2 weeks. Test Results: Test results from this visit will be discussed in further detail at your follow- up appointment, if applicable. Discharge Plan Admission Attending Provider: Chio Herr Primary Care Provider: Veronica Snow NP Instructions Print Language: Ukrainian Discharge Orders/Prescriptions Prescriptions: New oxycodone-acetaminophen [Percocet] 5-325 mg tablet 1 tab PO Q6H PRN (Reason: pain) 7 Days Qty: 10 0RF No Action Excedrin Migraine 250-250-65 mg tablet 1 tab PO Q4-6H PRN (Reason: pain) Nexplanon 68 mg implant 1 implant subdermal ONCE Rx Instructions: as a single dose megestrol 40 mg tablet 40 mg PO BID Qty: 60 2RF Referrals / Follow Up: Veronica Snow NP, SHE[employer] JOURNEYMAN-C [Primary Care Provider] - Disposition Disposition (needs filled in before D/C Order can be placed): Home, Self Care
--- NOTE | 2024-02-27 15:39 | OP.PCM_ITS ---
Problems Associated Problem List Diagnoses (1) Status post hysteroscopy: (2) Status post bilateral salpingectomy: (3) Sterilization: (4) Endometriosis: (5) Abnormal uterine bleeding: Operative Report (Standard) Operative Information Surgery/Procedure Performed: Dilation and curettage hysteroscopy symphion Surgeon: Chio Herr Date of Procedure: 02/27/24 Procedure Start Time: 14:07 Procedure Stop Time: 15:03 Pre-Operative Diagnosis: See problem list Post-Operative Diagnosis: Same plus endometriosis endometrial lesion Select all DRAINS/GRAFTS/IMPLANTS that apply: None (Bladder drained with Zuniga and removed at the beginning of the procedure) Type of Anesthesia: General Special Medications: Tranexamic acid Estimated Blood Loss: 150 Specimen collected: Yes Description of specimen(s) removed: Endometrial curettings bilateral fallopian tubes Description of surgery: Patient was taken the operating room and placed under general anesthesia was prepped and draped in normal sterile fashion in the dorsolithotomy position. Cervix was dilated to allow passage of the symphion hysteroscope. Uterine lining visualized and 2 polypoid lesions were noted and unable to be removed with polyp forceps therefore the decision was made to use the symphion system. Both lesions were completely removed with the system under direct visualization and tissue sent to pathology. Increased bleeding was noted so tranexamic acid was given and excellent hemostasis was noted. Attention was then paid to the abdominal portion of the procedure. Bilateral fallopian tubes were removed without complication by elevating the fallopian tubes and transecting along the mesosalpinx using the LigaSure device. Endometriosis was noted along the fallopian tubes and in the ovarian fossa which was ablated with the LigaSure device. Mild stage I disease. Ovaries were noted to be within normal limits. No other significant abnormalities were seen. Surgical Findings: Twp polypoid endometrial lesions Balance Wheel Screw Hole Tapper longwall headgate operator: Yes Reject Opener And Filler: Nicanor Spencer Tasks completed by asset protection assistant: Opening & closing, Trocar and Retracting Additional congressional assistant?: No Complications Complications: No Multi Select Codes Urinary/Genital Urinary/Genital CPT Codes: 25064 Hysteroscopy,EMC, Polypectomy and 36816 Laproscopic BS/O
--- NOTE | 2024-02-27 17:31 | POSTOPAN2_ITS ---
Anesthesia Postop Eval I Sum Postop Eval Completion status Anesthesia document: Postop Eval 1 completed: Yes Anesthesia Postop Eval I Summary Anesthesia Postop Eval I Summary: Anesthesia Postop Eval I: Assessment Summary Airway patent Yes 02/27/24 15:16 BAND [email or web address] Spontaneous unlabored Yes 02/27/24 15:16 BAND BOOKER.CSIR respirations Mental status nausea No 02/27/24 15:16 BAND BOOKER.CSIR Vomiting No 02/27/24 15:16 BAND BOOKER.CSIR Anesthesia Postop Eval I: Fluid Summary Crystalloid volume administer 500 02/27/24 15:16 BAND BOOKER.CSIR (ml) Colloids volume administered ( ml) Blood Product volume administered (ml) Total IV fluid infused 500 02/27/24 15:16 BAND BOOKER.CSIR Anesthesia Postop Eval I: Summary Notes Anesthesia Complication No 02/27/24 15:16 BAND BOOKER.CSIR Anesthesia Complication Comment: Post-operative progress note Anesthesia: Postop Eval II Evaluation Mental status: Awake Pain Level: 0 nausea: No Vomiting: No
--- NOTE | 2024-02-27 17:31 | PCM.POSTANE2 ---
Anesthesia Postop Eval I Sum Postop Eval Completion status Anesthesia document: Postop Eval 1 completed: Yes Anesthesia Postop Eval I Summary Anesthesia Postop Eval I Summary: Anesthesia Postop Eval I: Assessment Summary Airway patent Yes 02/27/24 15:16 STRINGER MACHINE TENDER.CSIR Spontaneous unlabored Yes 02/27/24 15:16 STRINGER MACHINE TENDER.CSIR respirations Mental status nausea No 02/27/24 15:16 STRINGER MACHINE TENDER.CSIR Vomiting No 02/27/24 15:16 STRINGER MACHINE TENDER.CSIR Anesthesia Postop Eval I: Fluid Summary Crystalloid volume administer 500 02/27/24 15:16 STRINGER MACHINE TENDER.CSIR (ml) Colloids volume administered ( ml) Blood Product volume administered (ml) Total IV fluid infused 500 02/27/24 15:16 STRINGER MACHINE TENDER.CSIR Anesthesia Postop Eval I: Summary Notes Anesthesia Complication No 02/27/24 15:16 STRINGER MACHINE TENDER.CSIR Anesthesia Complication Comment: Post-operative progress note Anesthesia: Postop Eval II Evaluation Mental status: Awake Pain Level: 0 nausea: No Vomiting: No
== END 2024-02-27 17:11 | disposition home or self-care (01) ==
LOC: SDC 11:49 → AC 11:50
PROVIDERS: PCP Nurse Practitioner Family; Referring Provider Obstetrics & Gynecology; Visit Provider Obstetrics & Gynecology
PROC: 0UB98ZZ Excision of Uterus, Via Natural or Artificial Opening Endoscopic (ICD-10-PCS; CPT 58558; principal; 2024-02-27 13:00)
PROC: (CPT 58661; 2024-02-27 13:00)
DX: R10.2 Pelvic and perineal pain (principal); C54.1 Malignant neoplasm of endometrium; D64.9 Anemia, unspecified; Z30.2 Encounter for sterilization; N93.8 Other specified abnormal uterine and vaginal bleeding; F17.200 Nicotine dependence, unspecified, uncomplicated; N80.9 Endometriosis, unspecified
CPT/HCPCS: 58558; 58661; 00840; 81025; 85027; 86850; 86900; 86901; 88302; 88305; J7120; J2405